=== PATIENT | male | born 1985 | race Caucasian/White ===

== ENCOUNTER 2017-02-23 07:05 | Emergency (ER) | payer SELFPAY ==
[~2017-02-23] VITALS: Ht 170.2 cm; Wt 79.5 kg
[~2017-02-23 07:05] MED LIST: PENI500T PO; TRAM50 PO
[2017-02-23 07:06] VITALS: BP 132/90; PULSE 87; RESP 17; TEMP 98.1; O2SAT 99
[2017-02-23] MEDS ORDERED: IBUP-232 PO (07:43)
[2017-02-23] MEDS ORDERED: AMOX875T PO (07:43)
[2017-02-23] MEDS ORDERED: CHLO.12%30 SWISH-SPIT (07:43)
--- NOTE | 2017-02-23 07:46 | PD ---
HPI . Dentalgia Chief Complaint: Oral / Dental Pain or Problem Time Seen by Provider: 07:47 Travel History International Travel<30 days: No Contact w/Intl Traveler<30days: No Traveled to known affect area: No History of Present Illness HPI 31-year-old male patient presents emergency department for evaluation of tooth pain that started approximately 3 days ago when he cracked tooth #27 when eating meat and bit down on a bone cracking his tooth. Patient denies any fever , chills, malaise, chest pain, shortness breath, abdominal pain, nausea, vomiting, diarrhea. Does not take any daily medication. Patient denies any major medical history. PFSH Past Medical History Medical History: Denies Significant Hx Hx Anticoagulant Therapy: No Cardiovascular Problems: No Chemotherapy: No Cerebrovascular Accident: No Diabetes: No Respiratory: No Past Surgical History Surgical History: No Previous Surgery Social History Alcohol Use: Yes (TWICE PER WEEK) Tobacco Use: Yes Substance Use: No Allergies-Medications (Allergen,Severity, Reaction): Coded Allergies: No Known Allergies (Verified Adverse Reaction, Unknown, 02/23/17) Reported Meds & Prescriptions Reported Meds & Active Scripts Active Ibuprofen 600 Mg Tab 600 Mg PO Q8HR PRN Chlorhexidine Gluconate (Mouth) Liq (Chlorhexidine Gluconate) 0.12% Soln 15 Ml SWISH-SPIT BID Amoxicillin 875 Mg Tab 875 Mg PO BID 7 Days Review of Systems Except as stated in HPI: all other systems reviewed are Neg Physical Exam Narrative GENERAL: Well-nourished, well-developed 31-year-old male patient in no acute distress. Nontoxic appearing. SKIN: Focused skin assessment warm/dry. HEAD: Normocephalic. Atraumatic. MOUTH: Localized gingival erythema and edema with small amount of purulent drainage noted at the base of tooth #27. Mucous membranes moist, no lesions, tongue and surround gums appear normal. NECK: Supple, trachea midline. No JVD or lymphadenopathy. CARDIOVASCULAR: Regular rate and rhythm without murmurs, gallops, or rubs. RESPIRATORY: Breath sounds equal bilaterally. No accessory muscle use. GASTROINTESTINAL: Abdomen soft, non-tender, nondistended. MUSCULOSKELETAL: No cyanosis, or edema. Data Data Last Documented VS Vital Signs Date Time Temp Pulse Resp B/P (MAP) Pulse Ox O2 Delivery O2 Flow Rate FiO2 02/23/17 07:06 98.1 87 17 132/90 (104) 99 Room Air Orders Orders Ed Discharge Order (02/23/17 07:48) MDM Medical Decision Making Medical Screen Exam Complete: Yes Emergency Medical Condition: Yes Differential Diagnosis Differential diagnoses include but not limited to dental abscess, dentalgia, gingivitis, pulpitis Narrative Course 31-year-old male patient presents emergency department for evaluation of dentalgia 3 days associated with cracking his tooth #27. There is localized gingival edema and erythema with small amount of purulent drainage at the base of tooth #27. Dental abscess will be treated with a prescription of amoxicillin , ibuprofen and chlorhexidine mouthwash. Patient will be discharged home with instructions to follow-up with his dentist or return to the emergency Department with any worsening condition. Diagnosis Primary Impression: Dental infection Referrals: [facility] Patient Instructions: Dental Abscess (ED), General Instructions Additional Instructions: Please return to emergency department if your symptoms return or worsen. Follow up with a dentist. Take medications as prescribed. Warm moist compresses may help facilitate drainage of infection Clove oil applied to cotton swab and applied topically to area can help ease pain Med/Other Pt SpecificInfo: Prescription(s) given Scripts Ibuprofen (Ibuprofen) 600 Mg Tab 600 MG PO Q8HR Y for PAIN, #20 TAB 0 Refills Prov: Shani Bella 02/23/17 Chlorhexidine Gluconate (Mouth) Liq (Chlorhexidine Gluconate (Mouth) Liq) 0.12% Soln 15 ML SWISH-SPIT BID, #473 ML 0 Refills Prov: Shani Bella 02/23/17 Amoxicillin (Amoxicillin) 875 Mg Tab 875 MG PO BID for Infection for 7 Days, #14 TAB 0 Refills Prov: Shani Bella 02/23/17 Disposition: 01 DISCHARGE HOME Condition: Stable Shani Bella Feb 23, 2017 07:46
== END 2017-02-23 07:57 | disposition home or self-care (01) ==
LOC: NEPD 07:05
DX: K04.7 Periapical abscess without sinus (principal); Z72.0 Tobacco use
CPT/HCPCS: 99283